=== PATIENT | female | born 1965 ===

== ENCOUNTER 2018-09-14 12:04 | Emergency (ER) | payer OTHER ==
[~2018-09-14] VITALS: Ht 157.5 cm; Wt 81.6 kg
[2018-09-14] MEDS ORDERED: SYNTHROID88 MCG (13:41)
[2018-09-14] MEDS ORDERED: PRILOSEC OTC20 MG (13:41)
[2018-09-14] MEDS ORDERED: ABILIFY30 MG (13:42)
[2018-09-14] MEDS ORDERED: INDERAL LA80 MG (13:42)
[2018-09-14] MEDS ORDERED: LAMICTAL200 M1 (13:42)
[2018-09-14] MEDS ORDERED: CLONAZEPAM1 MG (13:43)
== END 2018-09-14 19:00 | disposition home or self-care (01) ==
LOC: ER 12:04
DX: J06.9 Acute upper respiratory infection, unspecified (principal); N39.0 Urinary tract infection, site not specified; B96.29 Other Escherichia coli [E. coli] as the cause of diseases classified elsewhere